=== PATIENT | male | born 1960 | race Caucasian/White ===

== ENCOUNTER → 2017-10-16 15:47 | Outpatient (CLI) | payer BC, SELFPAY ==
--- NOTE | 2017-10-16 | DI.RAD.S_ITS ---
PROCEDURE: XR KNEE LT 3V INDICATIONS: LEFT KNEE PAIN TECHNIQUE: 3 views of the knee were acquired. COMPARISON: None. FINDINGS: Bones: No fractures or dislocations. No suspicious bony lesions. Minimal hypertrophic changes. Soft tissues: Trace joint effusion. No suspicious soft tissue calcifications. IMPRESSION: 1. Minimal hypertrophic bone indicating early joint degeneration. Dictated by: Junior CHAUDHARI Interpreted: Susan Fine MD on 10/16/2017 at 16:32 Approved by: Susan Fine M.D. on 10/16/2017 at 17:41
== END ==
PROVIDERS: Visit Provider Nurse Practitioner Family
DX: M25.562 Pain in left knee (principal)
CPT/HCPCS: 73562

== ENCOUNTER → 2020-07-06 15:57 | Outpatient (CLI) | payer BC, SELFPAY ==
--- NOTE | 2020-07-06 | DI.MRI.S_ITS ---
PROCEDURE: MR ANKLE RT WO CON INDICATIONS: Pain in right ankle and joints of right foot TECHNIQUE: Noncontrast sagittal T1 spin echo and T2 fast spin echo with fat saturation, axial proton density fast spin echo and T2 fast spin echo with fat saturation, coronal T1 spin echo and T2 fast spin echo with fat saturation through the ankle/hindfoot. COMPARISON: None. FINDINGS: Bones and joints: No bone marrow contusions or fractures. No hindfoot coalitions. No osteochondral injuries of the talar dome. No pathologic joint effusions. Scattered degenerative subchondral sclerosis and spurring. Circumferential hindfoot subcutaneous edema Medial structures: Posterior tibialis intact. Flexor digitorum longus intact. There is mild flexor digitorum longus tenosynovitis. Flexor hallucis longus tendon intact. The posterior tibial neurovascular bundle appears normal within the tarsal tunnel, without extrinsic mass effect. Deltoid ligament complex appears intact. The spring ligament appears intact. Lateral structures: Mild thickening of the anterior talofibular ligament. This appears T2 hypointense and probably chronic. Calcaneofibular ligament intact. Posterior talofibular ligament intact. Anterior and posterior tibiofibular ligaments appear intact, as is the intermalleolar ligament. Tibiofibular syndesmosis is normal in width at 2 mm or less. Peroneus longus and brevis tendons appear normal. Bony peroneal tubercle and retrotrochlear prominence are normal in size. Sinus tarsi demonstrates normal fatty signal, without edema, fibrosis, or cyst formation. Anterior structures: Tibialis anterior intact. Extensor hallucis longus intact. Extensor digitorum longus tendon intact. Dorsal talonavicular ligament appears intact. Posterior and plantar structures: Minimal distal Achilles tendinopathy. Mild low signal thickening of the proximal medial band of the plantar fascia for example image 15/6. No abductor digiti quinti muscle atrophy to suggest Rowe neuropathy. IMPRESSION: Low-grade chronic sprain of the anterior talofibular ligament. Mild flexor digitorum longus tenosynovitis Minimal distal Achilles tendinopathy Mild chronic appearing proximal medial band plantar fasciitis. Dictated by: Gume Robison M.D. on 07/09/2020 at 9:06 Approved by: Gume Robison M.D. on 07/09/2020 at 9:12
== END ==
PROVIDERS: Referring Provider Orthopaedic Surgery Foot and Ankle Surgery; Visit Provider Orthopaedic Surgery Foot and Ankle Surgery
DX: M25.571 Pain in right ankle and joints of right foot (principal); S93.491A Sprain of other ligament of right ankle, initial encounter; M65.871 Other synovitis and tenosynovitis, right ankle and foot
CPT/HCPCS: 73721